=== PATIENT | male | born 1990 | race African-American/Black ===

== ENCOUNTER 2022-06-27 19:10 | Emergency (ER) | payer MEDICAID ==
[~2022-06-27] VITALS: Ht 177.8 cm; Wt 80.0 kg
[2022-06-27] MEDS ORDERED: IBUPROFEN 600MG TABLET PO ONE (19:30)
[2022-06-27 19:52] VITALS: BP 125/87
== END 2022-06-27 23:14 | disposition home or self-care (01) ==
LOC: ER 19:10
DX: S63.501A Unspecified sprain of right wrist, initial encounter (principal); W22.09XA Striking against other stationary object, initial encounter; Y93.89 Activity, other specified; Y92.89 Other specified places as the place of occurrence of the external cause; Y99.8 Other external cause status
CPT/HCPCS: 73110; 73130; 99284

== ENCOUNTER 2022-08-01 18:31 | Emergency (ER) | payer MEDICAID ==
[~2022-08-01] VITALS: Ht 170.2 cm; Wt 77.0 kg
[2022-08-01] MEDS ORDERED: MORPHINE SULFATE 4 MG/ML CPJ (NOT FOR IM USE) IV STA (18:42)
[2022-08-01] MEDS ORDERED: ONDANSETRON HCL 4MG/2ML INJ IV STA (18:42)
[2022-08-01] MEDS ORDERED: SODIUM CHLORIDE 0.9% 1,000 ML IV ONE ×2 (18:45→19:30)
[2022-08-01] MEDS ORDERED: TETANUS, DIPHTHERIA, PERTUSSIS VAC/PF 0.5ML (>10YR OLD) IM ONE (18:45)
[2022-08-01] MEDS ORDERED: LIDOCAINE HCL/EPINEPHRINE 1%-EPI 1:100,000 20 ML VIAL INFIL ONE (19:00)
[2022-08-01] MEDS ORDERED: LIDOCAINE HCL/PF 1% 10 MG/ML 5ML VIAL INFIL ONE (19:00)
[2022-08-01 19:15] VITALS: BP 110/59
[2022-08-01] MEDS ORDERED: ONDANSETRON HCL 4MG/2ML INJ IV ONE ×2 (19:30)
== END 2022-08-01 19:34 | disposition short-term general hospital (02) ==
LOC: ER 18:52
DX: S21.131A Puncture wound without foreign body of right front wall of thorax without penetration into thoracic cavity, initial encounter (principal); I10 Essential (primary) hypertension; W34.00XA Accidental discharge from unspecified firearms or gun, initial encounter; Y93.89 Activity, other specified; Y92.89 Other specified places as the place of occurrence of the external cause; Y99.8 Other external cause status
CPT/HCPCS: 36415; 71045; 73070; 74018; 86850; 86900; 86901; 86920; 96360; 96361; 96372; 99285; J2270; J2405; J3490; J7030; 36430; P9016